=== PATIENT | male | born 1950 | race Caucasian/White ===

== ENCOUNTER 2017-03-25 15:03 | Day surgery (SDC) | payer MEDICARE ==
[~2017-03-25] VITALS: Ht 175.3 cm; Wt 95.9 kg
--- NOTE | ~2017-03-25 | OR ---
PATIENT'S NAME: NELY LU [facility] AGE: 67 Y [address] ROOM: [place] [address] LOCATION: [place] ADMIT DATE: 03/25/2017 OR/Procedure Report DISCHARGE DATE: 03/25/2017 FAMILY PHYSICIAN: Justyna Rosas MD ATTENDING PHYSICIAN: Roney Neves SURGEON: Roney Neves MD MEDICAL SECRETARY: None. DATE OF PROCEDURE: 03/25/2017 PREOPERATIVE DIAGNOSES: 1. Recurrent urethral stricture disease. 2. History of pelvic trauma with urethral disruption. POSTOPERATIVE DIAGNOSES: 1. Recurrent urethral stricture disease. 2. History of pelvic trauma with urethral disruption. OPERATIVE PROCEDURE: Cystourethroscopy with dilation of urethral stricture. ANESTHESIA ADMINISTERED: General. INDICATIONS FOR PROCEDURE: The patient is a pleasant 67-year-old male with history of pelvic trauma sustained back in 2008, for which he initially underwent cystoscopy and primary realignment with catheter placement on October 29, 2009. He ultimately did stricture down after his catheter was removed 6 weeks later and underwent a direct vision internal urethrotomy on December 16, 2009. He also did have a recurrent urethral stricture following the DVIU and underwent placement of a Urolume urethral stent on February 10, 2010. The patient actually had done quite well in the interim until the last several days where he had noted significant weakening of his urinary stream and difficulty with emptying his bladder. On cystoscopy today in clinic, he was noted to have a 10- to 12-Cymraes bulbar urethral stricture. He had over 1 L in his bladder and we were able to at least straight catheterize him with a 12-Cymraes urethral catheter to give him some temporary relief. The patient was explained the risks, benefits, indications, and alternatives to the above procedure and wished to proceed and consented freely. DESCRIPTION OF OPERATION: The patient was brought back to the operating room where he was placed on the OR table in the supine position. A surgical time- out was called where patient identification, surgical site, and procedure was then verified. We also did verify that the patient received an IV antibiotic within an hour of beginning the procedure. The patient underwent successful administration of general anesthesia. The patient was then moved and placed in a low lithotomy position where his genital area was then prepped and draped in the usual sterile fashion. I began by advancing a rigid cystoscope easily PATIENT'S NAME: NELY LU [facility] AGE: 67 Y [address] ROOM: [place] [address] LOCATION: [place] ADMIT DATE: 03/25/2017 OR/Procedure Report DISCHARGE DATE: 03/25/2017 FAMILY PHYSICIAN: Justyna Rosas MD ATTENDING PHYSICIAN: Roney Neves into the patient's anterior urethra. I did come across the previously identified bulbar urethral stricture, which was approximately 12- to 14-Cymraes in caliber. I did not see any foreign body material or any obvious visualization of the Urolume stent on inspection. Then under fluoroscopic guidance, I was able to pass a superstiff guidewire into the patient's bladder. I then removed the cystoscope and then began performing urethral dilation using the S curve urethral dilators. I dilated sequentially up to 20- Cymraes using the S curve dilators, which did pass smoothly. Following completion of the dilation alongside the wire, I then advanced a flexible cystoscope and was able to navigate into the patient's bladder. There was no additional evidence of further strictures proximal to his bulbar urethral stricture. His prostate was notable for some mild bilobar hyperplasia of the prostate. Upon enter into his bladder, full ferrara-cystoscopy was performed. He did have a quite capacious bladder, but there was no evidence of any obvious bladder tumors, cellules, or diverticula. He did have some moderate trabeculation and his ureteral orifices were noted to be in their orthotopic location. I then carefully removed the cystoscope and then over the wire, advanced an 18-Cymraes [place] tip Coppola catheter over the wire, into the bladder, and placed 10 mL of sterile water in the balloon and this was placed to gravity drainage and the wire had been removed. The patient was then taken out of the lithotomy position where he was then awoken from general anesthesia, extubated, and transferred to recovery bed and transported to the recovery room in good condition. The patient did tolerate the procedure well. COMPLICATIONS: None. DRAINS: Indwelling 18-Cymraes [place] tip Coppola catheter. SPECIMENS: None. ESTIMATED BLOOD LOSS: Minimal. FOLLOWUP PLAN: We will plan to have the patient back for followup in for a nurse visit on March 30, 2017, for a fill and pull with catheter removal and trial of void. If the patient successfully passes a trial of void, we will then plan to see the patient back in clinic to check a postvoid residual in 2 to 3 weeks. If ultimately the patient does have recurrent urethral stricture disease, for which he is at high risk for, given his history and previous dilations, we discussed the possibility of getting him set up for referral to a reconstructive urologist, Dr. Erich Borden, in [place], [place]. RONEY NEVES MD PATIENT'S NAME: NELY LU [facility] AGE: 67 Y [address] ROOM: [place] [address] LOCATION: [place] ADMIT DATE: 03/25/2017 OR/Procedure Report DISCHARGE DATE: 03/25/2017 FAMILY PHYSICIAN: Justyna Rosas MD ATTENDING PHYSICIAN: Roney Neves GP/modl /[id number] CC: Mathieu Hanley MD d: 03/26/17 0039 t: 03/31/17 0835, OPERATIVE SUMMARY
[2017-03-25] MEDS ORDERED: PROVENTIL OR V6.7 GM INH (15:26)
[2017-03-25] MEDS ORDERED: LIPITOR40 MG PO (15:27)
[2017-03-25] MEDS ORDERED: PRINIVIL OR ZES10 MG PO (15:29)
[2017-03-25] MEDS ORDERED: GLUCOPHAGE500 MG PO (15:30)
[2017-03-25] MEDS ORDERED: ASPIRIN LO-DOSE81 MG PO (15:31)
[2017-03-25] MEDS ORDERED: OSCAL500 MG PO (15:31)
[2017-03-25] MEDS ORDERED: VITAMIN D2000 UNIT PO (15:33)
[2017-03-25] MEDS ORDERED: ADVIL200 MG (15:34)
[2017-03-25 16:01] LABS: BASOPHIL % 0.3 %; EOSINOPHIL # 0.5 K/uL (0.0-0.5); EOSINOPHIL % 6.8 %; HEMATOCRIT 41.3 % (37.0-53.0); HEMOGLOBIN 14.5 g/dL (11.0-16.0); IMMATURE GRANULOCYTE % 0.1 %; LYMPHOCYTE # 2.2 K/uL (0.8-4.0); LYMPHOCYTE % 29.2 %; MCH 30.7 pg (27.0-34.0); MCHC 35.1 gm/dL (32.0-36.5); MCV 87.5 fl (83.0-98.0); MONOCYTE # 0.7 K/uL (0.0-1.0); MONOCYTE % 9.8 %; MPV 11.5 fl (9.4-12.4); NEUTROPHIL # (ANC) 4.1 K/uL (1.4-9.0); NEUTROPHIL % 53.8 %; NRBC % 0 /100WBC (0-0.00); PLATELET COUNT 206 K/uL (150-450); RBC 4.72 M/uL (3.50-5.50); RDW-CV 12.1 % (11.9-14.6); WBC 7.5 K/uL (4.0-11.0)
[2017-03-25 16:17] LABS: ALBUMIN 3.9 gm/dL (3.5-5.0); ALK PHOS 62 IU/L (33-138); ALT 28 IU/L (12-78); ANION GAP 15.1 (10.0-19.0); AST 18 IU/L (10-40); BLOOD UREA NITROGEN 21 mg/dL (6-24); CALCIUM 9.1 mg/dL (8.5-10.5); CHLORIDE 109 mMol/L (96-110); CO2 22 mMol/L (22-32); CREATININE 1.1 mg/dL (0.6-1.3); ESTIMATED GFR (MDRD EQUATION) > 60; POTASSIUM 4.1 mMol/L (3.7-5.1); SODIUM 142 mMol/L (135-145); TOTAL BILIRUBIN 0.9 mg/dL (0.0-1.5); TOTAL PROTEIN 7.1 g/dL (6.0-8.4)
[2017-03-25] MEDS ORDERED: BACTRIM DS1 TAB PO (18:29)
[2017-03-25] MEDS ORDERED: DITROPAN XL5 MG PO (18:31)
[2017-03-25] MEDS ORDERED: NORCO 7.5-3251 EACH PO (18:32)
== END 2017-03-25 19:20 | disposition disaster alternative care site (69) ==
LOC: GSDC 15:03
PROVIDERS: Urology
PROC: 0T7D8ZZ Dilation of Urethra, Via Natural or Artificial Opening Endoscopic (ICD-10-PCS; principal; 2017-03-25)
DX: N35.9 Urethral stricture, unspecified (principal); E11.9 Type 2 diabetes mellitus without complications; I10 Essential (primary) hypertension; J43.9 Emphysema, unspecified; J45.909 Unspecified asthma, uncomplicated; E78.00 Pure hypercholesterolemia, unspecified; Z87.828 Personal history of other (healed) physical injury and trauma
CPT/HCPCS: J1956; J2001; J7030